=== PATIENT | female | born 1950 | race Caucasian/White ===

== ENCOUNTER → 2016-12-20 | Outpatient (CLI) | payer MEDICARE, OTHER ==
[~2016-12-20] MED LIST: CETIRIZINE HCL10 MG PO; CHEWABLE ASPIRI81 MG; CHLORTHALIDONE25 MG; GLUCOPHAGE500 M1; INCRUSE ELLI62.5 MCG; LANTUS100 U/ML; LANTUS100 U/ML SUBQ; LASIX PO; LISINOPRIL; LISINOPRIL5 MG PO; NORVASC PO; PHENERGAN25 MG PO; PRILOSEC; [UNRECOGNIZED DRUG - OTHER] PO
--- NOTE | ~2016-12-20 | CR63 ---
[facility]. [facility] A Service of [facility] & [facility] RADIOLOGY TEXT RESULTS PATIENT: JEFFERY RAYMOND LOCATION: [facility] : 52 UNIT #: [id number] AGE: [address]: NAYLA RENEE APRN SEX: F ORDER DR: [id number] [address] [address] [id number] O MR#: [id number] Acc #: [id number] NAME: JEFFERY RAYMOND : 1950 SEX: F STUDY DATE/TIME: 12/20/2016 17:54 UNIT: [facility] ROOM: STUDY DESCRIPTION: CR Chest 2 View Attending Physician: Nayla Renee Aprn Ordering Physician: Nayla Renee Aprn Primary Care Physician: Ariadna Moralez A.P.R.N. MEDICAL IMAGING REPORT This report is preliminary unless electronic signature is present. EXAM Chest PA and lateral, 12/20/2016 HISTORY Shortness of breath since 12/14/2016. Benign essential hypertension, cough, chest congestion, COPD exacerbation. FINDINGS PA and lateral examination of the chest upright shows a good expansion of the parenchyma with a normal distribution of the pulmonary vascularity. There is no indication of congestion, effusion, infiltrate, tumor, or nodular density. The pleural reflections and diaphragmatic contours are normal. The cardiac silhouette and mediastinal anatomy is within normal limits. IMPRESSION Normal chest. Dictated by... Jordan Browning M.D. THIS IS AN ELECTRONICALLY VERIFIED REPORT Jordan Browning M.D. at 12/21/2016 10:55 AM Robbie TD: 12/21/2016 08:29 JOB #: [id number] MEDICAL IMAGING REPORT
== END | disposition home or self-care (01) ==
LOC: SRAD 17:49
DX: R06.02 Shortness of breath (principal)
CPT/HCPCS: 71020

== ENCOUNTER 2016-12-21 11:38 | Emergency (ER) | payer MEDICARE, OTHER ==
--- NOTE | ~2016-12-21 | CT16 ---
[facility]. [facility] A Service of [facility] RADIOLOGY TEXT RESULTS PATIENT: JEFFERY RAYMOND LOCATION: SED : 52 UNIT #: [id number] AGE: [address]: Ervin Vance MD SEX: F ORDER DR: [id number] [place] [address] [id number] E MR#: [id number] Acc #: [id number] NAME: JEFFERY RAYMOND : 1950 SEX: F STUDY DATE/TIME: 12/21/2016 14:20 UNIT: SED ROOM: STUDY DESCRIPTION: CT Angio Chest for PE Attending Physician: Ervin Vance M.D. Ordering Physician: Ervin Vance M.D. Primary Care Physician: Ariadna Moralez A.P.R.N. MEDICAL IMAGING REPORT This report is preliminary unless electronic signature is present. EXAM Chest CT angiogram with contrast, 12/21/2016 PROCEDURE Axial contrast-enhanced chest CT angiogram with 3-dimensional reformats. This CT exam was performed with one or more of the following radiation dose reduction techniques: automatic exposure control, adjustment of mA and/or kV according to patient size, and iterative reconstruction. CLINCIAL HISTORY Cough and short of air for 1 week with an elevated D-dimer. FINDINGS There is no pulmonary consolidation. There are some ill-defined bibasilar, left greater than right, mostly linear changes likely atelectasis. There is no pneumothorax or effusion. There is no airway obstruction. The thoracic aorta is normal in caliber. Bolus timing is good and the pulmonary arteries are well opacified. There is no evidence of pulmonary embolism. There is no mediastinal mass or adenopathy. Images of the upper abdomen demonstrate a cirrhotic appearing liver with a nodular surface though no discrete mass. The spleen is within normal limits for size. There is some spinal degenerative change but the bony structures are otherwise normal. IMPRESSION 1. Good bolus timing. No evidence of pulmonary embolism. 2. No pulmonary consolidation. Mild mostly linear posterior dependent basilar densities, likely atelectasis. [facility] A Service of [facility] RADIOLOGY TEXT RESULTS PATIENT: JEFFERY RAYMOND LOCATION: SED : 52 UNIT #: [id number] AGE: [address]: Ervin Vance MD SEX: F ORDER DR: 3. No effusion or pneumothorax. 4. Normal thoracic aorta. 5. Cirrhotic appearing liver. 6. Large presumed sebaceous cyst over the right upper posterior chest about 5 cm in size. Dictated by... Nam Barclay M.D. THIS IS AN ELECTRONICALLY VERIFIED REPORT Nam Barclay M.D. at 12/23/2016 3:42 PM MICAH/alba TD: 12/21/2016 23:01 JOB #: [id number] MEDICAL IMAGING REPORT
[2016-12-21 12:03] LABS: BASOPHIL% 0.5 % (0-2.5); EOSINOPHIL# 0.1 X10e3 (0-0.7); EOSINOPHIL% 0.9 % (0.0-7.0); HEMOGLOBIN 15.6 gm/dL (12.0-16.0); LYMPHOCYTE# 2.8 X10e3 (1.0-3.5); LYMPHOCYTE% 31.5 % (17.0-45.0); MEAN CORPUSCULAR HEMOGLOBIN 31.2 PG (28-34); MEAN CORPUSCULAR HGB CONC 33.9 g/dL (30-36); MEAN PLATELET VOLUME 9.6 FL (6.5-11.5); MONOCYTE# 0.8 X10e3 (0-1.0); MONOCYTE% 8.6 % (3.0-12.0); NEUTROPHIL# 5.2 X10e3 (1.5-7.1); NEUTROPHIL% 58.5 % (40-75); PLATELET COUNT 143 X10e3 (140-420); RED CELL DISTRIBUTION WIDTH 12.8 % (11.0-15.5)
[2016-12-21 12:05] LABS: DIFF IND NO
[2016-12-21 12:26] LABS: POC - CKMB 2.3 ng/mL (0.0-7.9); POC - TROPONIN <0.05 ng/mL (<=0.05)
[2016-12-21 12:39] LABS: BILIRUBIN, DIRECT 0.1 mg/dL (0.0-0.2); BILIRUBIN,INDIRECT 0.7 mg/dL (0.0-0.9); BILIRUBIN,TOTAL 0.8 mg/dL (0.2-2.0); BUN/CREATININE RATIO 32.3; CALCIUM SERUM 10.5 mg/dL (8.4-10.2); CREATININE SERUM 1.3 mg/dL (0.6-1.4); GLOM FILT RATE Estimated 43.7 mL/min (>60); POTASSIUM 3.4 mmol/L (3.5-5.1); PROTEIN TOTAL SERUM 8.4 g/dL (6.0-8.3)
== END 2016-12-21 15:52 | disposition home or self-care (01) ==
LOC: SED 11:38
PROVIDERS: Emergency Medicine
DX: J40 Bronchitis, not specified as acute or chronic (principal); Z90.49 Acquired absence of other specified parts of digestive tract; Z90.710 Acquired absence of both cervix and uterus; Z77.22 Contact with and (suspected) exposure to environmental tobacco smoke (acute) (chronic)
CPT/HCPCS: 71275; 80048; 80076; 82553; 83690; 83874; 83880; 84484; 85025; 85379; 99284; Q9967